=== PATIENT | male | born 1975 | race Caucasian/White ===

== ENCOUNTER 2021-02-11 05:15 | Emergency (ER) | payer SELFPAY ==
[2021-02-11 05:23] VITALS: BP 126/72; PULSE 93; RESP 17; TEMP 36.5; O2SAT 100
--- NOTE | 2021-02-11 05:37 | ED_ITS ---
HPI - Ear Problem History of Present Illness HPI Narrative: Pain and pressure in the ears bilaterally for the past 4-5 days. Associated with muffled hear and sinus pressure. No fever, cough, congestion, sore throat. Related Data Allergies Allergy/AdvReac Type Severity Reaction Status Date / Time No Known Allergies Allergy Verified 02/11/21 05:39 Review of Systems Review of Systems: All systems reviewed & are unremarkable except as noted in HPI and below [facility] Social History Social History (Updated 02/19/21 @ 17:22 by Akin Thomas MD) Smoking status: Current every day smoker Exam Const: General: no acute distress and alert Orientation/consciousness: patient oriented x3 HENMT: Head: normal to inspection Ears: TM abnormal wth effusion serous bilateral and with fluid behind the TM; not erythematous Face and sinus: sinus tenderness Mouth: Yes Abnormal oral and palatal mucosa present Throat: posterior oropharynx normal Eyes: Conjunctivae: conjunctivae normal Pupils: Equal, round and reactive pupils present EOM: EOMs intact bilaterally Resp: Effort & Inspection: normal respiratory effort Auscultation: clear to auscultation bilaterally Cardio: Rate: regular rate Rhythm: regular rhythm Skin: General skin exam: normal color Neuro: General: patient oriented x3, moves all extremities and CN's II-XI intact bilaterally Speech: normal speech Gait exam (Neuro): Normal gait present Course Vital Signs Vital signs: Vital Signs Temperature 36.5 C 02/11/21 05:23 Pulse Rate 93 02/11/21 05:23 Respiratory Rate 17 02/11/21 05:23 Blood Pressure 126/72 02/11/21 05:23 Pulse Oximetry 100 02/11/21 05:23 Temperature 36.5 C 02/11/21 05:23 Pulse Rate 90 02/11/21 05:51 Respiratory Rate 17 02/11/21 05:51 Blood Pressure 119/76 02/11/21 05:51 Pulse Oximetry 100 02/11/21 05:51 Medical Decision Making Medical Records Medical records reviewed: Yes I reviewed the external patient's medical records. Vital Signs Vital Signs: Vital Signs Temperature 36.5 C 02/11/21 05:23 Pulse Rate 93 02/11/21 05:23 Respiratory Rate 17 02/11/21 05:23 Blood Pressure 126/72 02/11/21 05:23 Pulse Oximetry 100 02/11/21 05:23 Temperature 36.5 C 02/11/21 05:23 Pulse Rate 90 02/11/21 05:51 Respiratory Rate 17 02/11/21 05:51 Blood Pressure 119/76 02/11/21 05:51 Pulse Oximetry 100 02/11/21 05:51 Discharge Plan Discharge Clinical Impression: Otitis media Patient Disposition: Home, Self-Care Condition: Stable Instructions: Antibiotic Form, Fluid In The Ear (Serous Otitis Media) (ED) Prescriptions: New pseudoephedrine HCl 60 mg tablet 60 mg PO Q4-6H PRN (Reason: nasal congestion) Qty: 20 RF: 0 amoxicillin-pot clavulanate [Augmentin] 875-125 mg tablet 1 tablet PO Q12H Qty: 14 RF: 0 loratadine [Claritin] 10 mg tablet 10 mg PO DAILY Qty: 30 RF: 0 Follow-up/Referrals: PHYSICIAN,TERMINAL SYSTEM OPERATOR [Primary Care Provider] - Kane Patel DO [Physician] -
[2021-02-11] MEDS: PSEUDOEPHEDRINE HCL 30 MG TABLET 60 MG PO (05:47)
[2021-02-11] MEDS: LORATADINE 10 MG TABLET PO (05:48)
[2021-02-11] MEDS: AMOXICILLIN/CLAVULANATE K 875-125 MG TAB 1 TABLET PO (05:48)
[2021-02-11 05:51] VITALS: BP 119/76; PULSE 90; RESP 17; O2SAT 100
== END 2021-02-11 05:53 | disposition home or self-care (01) ==
PROVIDERS: Emergency Provider Emergency Medicine
DX: H66.93 Otitis media, unspecified, bilateral (principal); F17.200 Nicotine dependence, unspecified, uncomplicated
CPT/HCPCS: 99283; A9270

== ENCOUNTER 2021-07-29 09:08 | Emergency (ER) | payer SELFPAY ==
--- NOTE | ~2021-07-29 | XR_ITS ---
XR ankle RT min 3V DATE: 07/29/2021 09:33 INDICATION: Injury, lateral swelling, bruising TECHNIQUE: 4 views COMPARISON: None FINDINGS: Mild lateral soft tissue swelling. No fracture or dislocation of the ankle or disruption of the ankle mortise. No periosteal reaction or bone destruction. IMPRESSION: Mild lateral soft tissue swelling Reviewed, dictated and finalized at location A. [facility] APPLICATION ARCHITECT
[2021-07-29 09:15] VITALS: BP 144/86; PULSE 81; RESP 16; TEMP 36.4; O2SAT 96
--- NOTE | 2021-07-29 10:05 | ED_ITS ---
HPI - Extremity Injury (Lower) General Chief Complaint: Extremity Injury, Lower Stated Complaint: foot injury Time Seen by Provider: 07/29/21 09:10 History of Present Illness HPI Narrative: Patient is a 46-year-old male who presents ER with right ankle pain. Reports he twisted it 4 days ago. He has been able to bear weight but has developed bruising over the bottom part of his foot and has had persistent swelling around the ankle. No numbness or tingling. He slipped off the rung of the ladder and suffered inversion injury. Related Data Allergies Allergy/AdvReac Type Severity Reaction Status Date / Time No Known Allergies Allergy Verified 07/29/21 09:19 Review of Systems Musculoskeletal: Musculoskeletal: Reports arthralgias, Reports joint swelling and Denies muscle cramps Integumentary/Breasts: Skin/Breast: Denies pruritus, Denies rash and Denies skin ulcer Comments: Right ankle bruising Neurologic: Denies focal weakness and Denies numbness PMFSH Past Medical History Medical History (Updated 07/29/21 @ 17:37 by Americo Harrison MD) Healthy adult male Surgical History Surgical History (Updated 07/29/21 @ 17:37 by Americo Harrison MD) H/O inguinal hernia repair Social History Social History (Updated 02/19/21 @ 17:22 by Akin Thomas MD) Smoking status: Current every day smoker Exam Narrative: GENERAL: Well-appearing, well-nourished, and in no acute distress. HEAD: Normocephalic, atraumatic. HEART: Regular rate and rhythm. Normal peripheral pulses. EXTREMITIES: Normal range of motion. No edema. Swelling of the right ankle with dependent bruising near the heel. There is some yellowing over the midfoot and proximal ankle. SKIN: Warm, dry, no rash. NEURO: No focal deficits. Alert and oriented x3. PSYCH: Normal mood and affect. Course Course Emergency Course: Patient informed of results. Ambulatory in the ER. Discharge home. Vital Signs Vital signs: Vital Signs Temperature 97.6 F 07/29/21 09:15 Pulse Rate 81 07/29/21 09:15 Respiratory Rate 16 07/29/21 09:15 Blood Pressure 144/86 H 07/29/21 09:15 Pulse Oximetry 96 07/29/21 09:15 Temperature 97.6 F 07/29/21 09:15 Pulse Rate 81 07/29/21 09:15 Respiratory Rate 16 07/29/21 09:15 Blood Pressure 144/86 H 07/29/21 09:15 Pulse Oximetry 96 07/29/21 09:15 MDM - Extremity Injury (Lower) Imaging Data Radiologist's impression: ITS Impressions Ankle X-Ray 07/29/21 09:42 IMPRESSION: Mild lateral soft tissue swelling Discharge Plan Discharge Clinical Impression: Ankle sprain Patient Disposition: Home, Self-Care Condition: Stable Instructions: Ankle Sprain (ED), P.R.I.C.E. Treatment (ED) Additional Instructions: Return to the ER if you have fever over 100.4 ?F, you cannot keep down food or water, you have chest pain or shortness of breath, you have additional concerns. Prescriptions: New naproxen 375 mg tablet 375 mg PO BID Qty: 14 RF: 0 Follow-up/Referrals: PHYSICIAN,REPRODUCTION SPECIALIST [Primary Care Provider] - Jcarlos Boyce MD [Physician] - 1 Week
== END 2021-07-29 10:16 | disposition home or self-care (01) ==
PROVIDERS: Emergency Provider Emergency Medicine
DX: S93.401A Sprain of unspecified ligament of right ankle, initial encounter (principal); F17.200 Nicotine dependence, unspecified, uncomplicated; X50.9XXA Other and unspecified overexertion or strenuous movements or postures, initial encounter
CPT/HCPCS: 73610; 99283